=== PATIENT | female | born 1975 | race Caucasian/White ===

== ENCOUNTER → 2023-08-09 | Outpatient (CLI) | payer MEDICARE ==
--- NOTE | 2023-08-09 16:49 | CT ---
EXAMINATION TYPE: CT abdomen pelvis w con CT DLP: 2597.3 mGycm, Automated exposure control for dose reduction was used. DATE OF EXAM: 08/09/2023 3:18 PM COMPARISON: None. CLINICAL INDICATION:Female, 47 years old with history of R43.2 hernia; Hernia. TECHNIQUE: Axial CT of the ;CT abdomen pelvis w con;Sagittal and coronal reformats were created on a separate workstation. Contrast used:100 ml mL of Isovue 300 with IV Contrast, (none if empty) Oral contrast used: with Oral Contrast (none if empty) FINDINGS: LOWER CHEST: Unremarkable ABDOMEN LIVER: Unremarkable GALLBLADDER AND BILE DUCTS: Gallbladder is surgically absent with mild intrahepatic and extra hepatic biliary dilatation likely physiologic and a postcholecystectomy change. No evidence of choledocholit hiasis. PANCREAS: Unremarkable. SPLEEN: Unremarkable. ADRENAL GLANDS: Unremarkable. KIDNEYS AND URETERS: No evidence of hydronephrosis or renal calculus. The ureters are unremarkable. Dilation of the collecting systems bilaterally. No evidence for obstructing calculus. PELVIS BLADDER: Nondistended with Chanel catheter in place. REPRODUCTIVE: Unremarkable. ABDOMEN & PELVIS STOMACH AND BOWEL: No evidence of bowel obstruction. PERITONEUM/RETROPERITONEUM: No evidence of pneumoperitoneum or free fluid. VASCULATURE: No evidence of aortic aneurysm. IVC filter in place. MUSCULOSKELETAL: No acute osseous abnormalities LYMPH NODES: No gross evidence for lymphadenopathy. SOFT TISSUE/ABDOMINAL WALL: Diastases of the anterior abdominal wall No evidence for aortic outpouchi ng to suggest hernia. Postsurgical changes anterior abdominal wall. IMPRESSION: 1. Mild diastases of the anterior abdominal wall without evidence for hernia. Superimposed on surgic al changes to the intra-abdominal wall. No evidence for bowel obstruction. 2. Pelvocaliectasis of the bilateral kidneys.
== END | disposition home or self-care (01) ==
LOC: RADCTMAIN 13:15
PROVIDERS: ATTEND Surgery
DX: K43.2 Incisional hernia without obstruction or gangrene (principal); M62.08 Separation of muscle (nontraumatic), other site; R43.2 Parageusia
CPT/HCPCS: 74177; Q9967

== ENCOUNTER → 2024-03-02 | Outpatient (CLI) | payer MEDICARE, OTHER ==
[2024-03-02 09:25] VITALS: BP 156/89; PULSE 66; RESP 16
--- NOTE | 2024-03-02 14:16 | P.PAINPG ---
PQRS Measure Charge Sheet Comment: HISTORY OF PRESENT ILLNESS: A 48 yr old female as a referral from Dr Reyez presents today w severe and chronic pain secondary to lumbar DDD, L Knee Chondromalacia for evaluation. Pt states pain level is provoked at 10 /10 in intensity, constant, localized in the lumbar spine and L knee, predominantly axial, achy in character without shooting pain. Pain is provoked by any activity. Pain is alleviated by physician guided home exercises/ stretches every other day since January 2024, medications (Percocet 10/325mg #120, MS ER 15mg #60), repositioning and rest . Pt states she has had LESIs but only gave her 3 days of relief. She states she is not interested in PT as movement drastically increases pain. She would like to take pain medications every 4 hrs. Will prescribe TENS unit at this time. PMH: OA, Obesity, IDDM II, Diabetic Neuropathy, MDD/ Anxiety/ Bipolar Disorder, Hypothyroidism, HTN, GERD, OAB PSH: No records received SH: No records received FH: No records received All: See list Meds: See list REVIEW OF ORGAN SYSTEMS: CONSTITUTIONAL: No fevers or chills. No recent weight loss. NEUROLOGICAL: + numbness and tingling along the distal extremities. No seizure disorders or headaches. MUSCULOSKELETAL: + pain PSYCHIATRIC: Denies current depression or suicidal thoughts. Physical Examinations : Constitutional : Cooperative , not in acute distress . Neurologic : Cranial nerve II to XII intact. No focal neurological deficits. Psychiatric : alert & oriented x 3. Matching mood & appropriate affect. Judgment & insight intact. Musculoskeletal : Cervical Spine Motor strength in the deltoid and biceps: Normal right side. Normal Left side Motor strength biceps and the wrist extensors: Normal right side . Normal left side Motor strength in the triceps muscle: Normal right side. Normal left side Deep tendon reflexes: Normal at the biceps. Normal at Brachioradialis. Normal at triceps Vertebral body tenderness to deep palpation over Cervical facet loading test: positive bilaterally Spurling test: positive bilaterally Neck distraction test: positive bilaterally Violeta sign: positive bilaterally Lumbar spine Motor strength lower extremities ,thigh and legs 5/5 Right side , 5/5 Left side Deep tendon reflexes : Normal Knee Jerk. Normal Ankle Jerk Vertebral body tenderness over Newton Test positive Lumbar facet Loading Test: positive Right / positive Left Range of motion of the lumbar spine Flexion 30 degrees, extension 10 degrees Straight Leg Raise test: Left/ Right positive at degrees Gladis test: positive right / positive left. Severe tenderness over the Sacroiliac joint on the Right / Left sides Gaenslen test: positive bilaterally Seated flexion test: positive bilaterally. Sacral spine : Severe tenderness over the Sacroiliac joint: right side / left side Range of motion: Flexion of the lumbar spine <60 degrees Range of motion: Extension of the lumba r spine <20 degrees Gaenslen's Test positive Gladis test: positive right side / left side Thigh Thrust Test Sacral Thrust Test Imaging: At [facility] per pt Assessment/ Plan : Lumbar DDD Recommendation of TENS unit use M51.36 while we obtain records from [facility]. All questions answered. I have spent greater than 30 minutes on patient care today. Dr Jasmine was available by phone for the evaluation of this patient. The time was used to rev iew the medical records including relevant urine studies and Prescription history (MAPs), review of the available imaging, evaluation and examination of the patient, coordination of care with the medical staff and if applicable referring physicians, as well as creation of the medical record - Pain Location Bilateral Lower Back Non-Pharmacological Interventions: Inactivity, Physical Therapy Pharmacological Interventions: PRN Medication, Scheduled Medication, Topical Medication Controlled Substance Measures - Controlled Substance Measures Is patient prescribed a controlled substance at discharge?: No
== END ==
LOC: PNWHC3 08:18
PROVIDERS: ATTEND Specialist
DX: M51.36 Other intervertebral disc degeneration, lumbar region (principal); Z88.8 Allergy status to other drugs, medicaments and biological substances; Z88.0 Allergy status to penicillin; Z88.2 Allergy status to sulfonamides
CPT/HCPCS: 99211